=== PATIENT | male | born 1945 | race Caucasian/White ===

== ENCOUNTER 2020-07-09 12:57 | Emergency (ER) | payer MEDICARE, BC ==
[2020-07-09 13:31] LABS: ANION GAP 12.8 mmol/L (10-20); CHLORIDE,CL 104 mmol/L (98-107); SODIUM,NA 141 mmol/L (136-145)
--- NOTE | 2020-07-09 13:35 | EDM.PDOC ---
ED HPI GENERAL MEDICAL PROBLEM - General Chief Complaint: General Stated Complaint: STROKE Time Seen by Provider: 07/09/20 12:57 Source of Information: Reports: Patient History Limitations: Reports: No Limitations - History of Present Illness INITIAL COMMENTS - FREE TEXT/NARRATIVE: Patient is brought into the emergency department via [place] [facility] for a possible stroke. Patient lives in the town of [place] and contacted 911 right after he began having symptoms at approximately 1145. Ambulance states that they contacted the emergency room provider who stated to bypass their hospital and present to the [facility] for further stroke care workup. Patient states his contacted 911 when he began having numbness and tingling around the lips as well as some drooling noted from his mouth. Patient did have an equal grasp for a small period of time. By the time the patient arrived to the emergency department he states that the numbness and tingling is beginning to resolve in his upper lip as well as the weakness on his left side is resolved.Patient does not know his med list nor does he carry med list with him. Ambulance states they are unaware if the patient is on any anticoagulant therapy.Patient states he is been feeling relatively well and has not no major concerns rr illnesses. He states that they have been isolating have remained away from social gatherings in hopes of preventing Covid19. Patient denies any chest pain, shortness of breath, dizziness, lightheadedness, numbness or tingling other than What was stated above, diaphoresis, nausea, vomiting, abdominal pain, concerns, or peripheral edema. Onset: Sudden Quality: Reports: Other Severity: Mild Improves with: Reports: None Worsens with: Reports: None Associated Symptoms: Reports: No Other Symptoms - Related Data Allergies Allergy/AdvReac Type Severity Reaction Status Date / Time Tetanus Vaccines and Toxoid Allergy Hives Verified 07/09/20 14:27 ED ROS GENERAL - Review of Systems Review Of Systems: Comprehensive ROS is negative, except as noted in HPI. Constitutional: Reports: No Symptoms HEENT: Reports: No Symptoms Respiratory: Reports: No Symptoms Cardiovascular: Reports: No Symptoms Endocrine: Reports: No Symptoms GI/Abdominal: Reports: No Symptoms : Reports: No Symptoms Musculoskeletal: Reports: No Symptoms Skin: Reports: No Symptoms Neurological: Reports: No Symptoms Psychiatric: Reports: No Symptoms Hematologic/Lymphatic: Reports: No Symptoms Immunologic: Reports: No Symptoms ED EXAM, GENERAL - Physical Exam Exam: See Below Exam Limited By: No Limitations General Appearance: Alert, WD/WN, No Apparent Distress Eye Exam: Bilateral Eye: EOMI, PERRL Ears: Normal External Exam, Normal Canal, Hearing Grossly Normal Ear Exam: Bilateral Ear: Auricle Normal, Canal Normal, TM normal Throat/Mouth: Normal Inspection, Normal Lips, Normal Gums, Normal Oropharynx, Normal Voice, No Airway Compromise, Other (numbness to lips ) Head: Atraumatic, Normocephalic Neck: Normal Inspection, Supple, Non-Tender, Full Range of Motion Respiratory/Chest: No Respiratory Distress, Lungs Clear, Normal Breath Sounds, No Accessory Muscle Use, Chest Non-Tender Cardiovascular: Normal Peripheral Pulses, Regular Rate, Rhythm, No Edema, No Murmur, No Rub GI/Abdominal: Normal Bowel Sounds, Soft, Non-Tender, No Organomegaly, No Abnormal Bruit, No Mass (Male) Exam: Deferred Rectal (Males) Exam: Deferred Back Exam: Normal Inspection, Full Range of Motion Extremities: Normal Inspection, Normal Range of Motion, Non-Tender, Normal Capillary Refill Neurological: Alert, Oriented, CN II-XII Intact, Normal Reflexes, No Motor/Sensory Deficits Psychiatric: Normal Affect, Normal Mood Skin Exam: Warm, Dry, Intact, Normal Color Course - Orders/Labs/Meds Labs: Laboratory Tests 07/09/20 07/09/20 07/09/20 Range/Units 13:10 13:10 13:10 WBC 7.5 (4.0-10.0) x10^3/uL RBC 4.96 (4.5-6.0) x10^6/uL Hgb 14.7 (14.0-18.0) g/dL Hct 44.1 (40.0-52.0) % MCV 88.9 (78.0-93.0) fL MCH 29.6 (26.0-32.0) pg MCHC 33.3 (32.0-36.0) g/dL RDW Coeff of Fabiola 13.0 (10.0-15.0) % Plt Count 189 (130-400) x10^3/uL Neut % (Auto) 52.9 (50.0-80.0) % Lymph % (Auto) 39.0 (25.0-50.0) % [place] % (Auto) 6.2 (2.0-11.0) % Eos % (Auto) 1.6 (0.0-4.0) % Baso % (Auto) 0.3 (0.2-1.2) % PT 10.1 (9.5-12.3) SEC INR 0.9 L (2.0-3.5) APTT 30.7 (25.6-32.8) SEC Sodium 141 (136-145) mmol/L Potassium 3.8 (3.5-5.1) mmol/L Chloride 104 (98-107) mmol/L Carbon Dioxide 28 (21-32) mmol/L Anion Gap 12.8 (10-20) mmol/L BUN 27 H (7-18) mg/dL Creatinine 1.5 H (0.70-1.30) mg/dL Est Cr Clr Drug Dosing TNP Estimated GFR (MDRD) 46 Glucose 89 (74-106) mg/dL Calcium 8.9 (8.5-10.1) mg/dL POC Troponin I (0.00-0.08) ng/mL 07/09/20 Range/Units 13:15 WBC (4.0-10.0) x10^3/uL RBC (4.5-6.0) x10^6/uL Hgb (14.0-18.0) g/dL Hct (40.0-52.0) % MCV (78.0-93.0) fL MCH (26.0-32.0) pg MCHC (32.0-36.0) g/dL RDW Coeff of Fabiola (10.0-15.0) % Plt Count (130-400) x10^3/uL Neut % (Auto) (50.0-80.0) % Lymph % (Auto) (25.0-50.0) % [place] % (Auto) (2.0-11.0) % Eos % (Auto) (0.0-4.0) % Baso % (Auto) (0.2-1.2) % PT (9.5-12.3) SEC INR (2.0-3.5) APTT (25.6-32.8) SEC Sodium (136-145) mmol/L Potassium (3.5-5.1) mmol/L Chloride (98-107) mmol/L Carbon Dioxide (21-32) mmol/L Anion Gap (10-20) mmol/L BUN (7-18) mg/dL Creatinine (0.70-1.30) mg/dL Est Cr Clr Drug Dosing Estimated GFR (MDRD) Glucose (74-106) mg/dL Calcium (8.5-10.1) mg/dL POC Troponin I 0.02 (0.00-0.08) ng/mL Departure - Departure Time of Disposition: 14:40 Disposition: DC/Tfer to Acute Hospital 02 Condition: Good Clinical Impression: TIA (transient ischemic attack) - Discharge Information *PRESCRIPTION DRUG MONITORING PROGRAM REVIEWED*: Not Applicable *COPY OF PRESCRIPTION DRUG MONITORING REPORT IN PATIENT RICH: Not Applicable Referrals: Damian Aquino NP [Primary Care Provider] - Forms: ED Department Discharge, Interfacility Transfer EMTALA - Assessment/Plan Plan: 1. Stroke code 2. Labs completed in the ER. Results reviewed with the patient 3. IV initiated in the emergency department 4. NIH Scale- 1 NIH Scale repeated- [address] scan of head completed in ER. Results reviewed 6. Activase administration- not given due to symptoms resolving. 7. Patient and nursing staff was updated regarding the plan of care 8. Consultation completed with Dr. Staley who agrees this patient does not need TPA. They are extremely tight on hospital beds and will review the case to see if admission is capable or if patient will stay here. Hospitalist service is willing to admit and will call back when a bed is available 9. Patient will be transferred to a higher level of care for further medical evaluation and treatment. 10. Patient and family are agreeable to the above plan of care 11. All questions and concerns were addressed with the patient and family prior to discharge
[2020-07-09 13:38] LABS: PTT,PARTIAL THROMBOPLSTIN TIME 30.7 SEC (25.6-32.8)
--- NOTE | 2020-07-09 13:38 | CT ---
[id number] CT/CT Head Stroke Protocol EXAM: CT Head Stroke Protocol CLINICAL DATA: STROKE CODE. COMPARISON STUDY: None FINDINGS: No intracranial hemorrhage, extra-axial fluid collection, mass, or acute ischemia. No hydrocephalus. 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 Small bilateral basal ganglia and lacunar infarctions. Paranasal sinuses and mastoid air cells are clear. IMPRESSION: No acute intracranial findings. Results relayed to Lynn Rangel at time of dictation. Micha Murguia MD 07/09/20 2152 Thank you for allowing us to participate in the care of your patient.
== END 2020-07-09 15:45 | disposition short-term general hospital (02) ==
LOC: VM.ED 12:57
DX: G45.9 Transient cerebral ischemic attack, unspecified (principal); Z88.7 Allergy status to serum and vaccine
CPT/HCPCS: 36415; 70450; 80048; 84484; 85025; 85610; 85730; 93005; 99284; 99285-25